=== PATIENT | female | born 1970 | race Caucasian/White ===

== ENCOUNTER → 2018-07-28 | Outpatient (CLI) | payer BC ==
[2018-07-28 16:37] LABS: Basophils # (A) 0.1 k/uL (0-0.2); Basophils % (A) 1 %; Eosinophils # (A) 0.1 k/uL (0-0.7); Eosinophils % (A) 2 %; HCT 37.5 % (34.0-46.0); HGB 12.3 gm/dL (11.4-16.0); Lymphocytes # (A) 1.4 k/uL (1.0-4.8); Lymphocytes % (A) 23 %; MCH 29.9 pg (25.0-35.0); MCHC 32.8 g/dL (31.0-37.0); MCV 91.2 fL (80.0-100.0); Mean Platelet Volume 8.4; Monocytes # (A) 0.3 k/uL (0-1.0); Monocytes % (A) 5 %; Neutrophils # (A) 3.9 k/uL (1.3-7.7); Neutrophils % (A) 66 %; Platelet Count 194 k/uL (150-450); RBC 4.11 m/uL (3.80-5.40); RDW 12.5 % (11.5-15.5); WBC 5.9 k/uL (3.8-10.6)
== END | disposition home or self-care (01) ==
LOC: LABPAT 15:42
PROVIDERS: ATTEND Obstetrics & Gynecology
DX: Z01.812 Encounter for preprocedural laboratory examination (principal)
CPT/HCPCS: 36415; 85025

== ENCOUNTER 2018-08-05 06:09 | Day surgery (SDC) | payer BC ==
--- NOTE | 2018-08-04 18:17 | P.HPOB ---
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 She initially had an abnormal Pap smear in July 2016 that showed low-grade with positive high risk HPV. She had a colposcopy 10/01/2017 that showed CHRISTA-1. She was also treated with cryocautery in September 2017. A repeat Pap smear on 05/27/2018 again revealed low-grade screen is intraepithelial lesion with positive high risk HPV. In light of the recurrence of the low-grade, she has requested to proceed with loop electrocautery excision procedure along with colposcopy. Obstetrical history: . History of 1 vaginal delivery. Gynecologic history: No other history of sexual transmitted diseases. She has been with her current partner for 2 years. She is currently on Xulane patch for control. Social history: She is . She is currently working in [employer]. Review of Systems Constitutional: Reports night sweats, Denies chills, Denies fever Eyes: denies blurred vision, denies pain Ears, nose, mouth and throat: Denies headache, Denies sore throat Cardiovascular: Denies chest pain, Denies shortness of breath Respiratory: Denies cough Gastrointestinal: Reports constipation, Denies abdominal pain, Denies diarrhea, Denies nausea, Denies vomiting Genitourinary: Reports dysmenorrhea, Reports dysuria, Reports urinary frequency , Denies hematuria Menstruation: Reports menses variable Musculoskeletal: Denies myalgias Integumentary: Denies pruritus, Denies rash Neurological: Denies numbness, Denies weakness Psychiatric: Reports anxiety Past Medical History Past Medical History: Osteoarthritis (OA) History of Any Multi-Drug Resistant Organisms: None Reported Past Surgical History: Orthopedic Surgery Additional Past Surgical History / Comment(s): Right foot surgery Past Anesthesia/Blood Transfusion Reactions: Family History of Problems w/ Anesthesia Additional Past Anesthesia/Blood Transfusion Reaction / Comment(s): Mother PONV Past Psychological History: Anxiety Smoking Status: Never smoker Past Alcohol Use History: Occasional Past Drug Use History: None Reported - Past Family History Mother Family Medical History: No Reported History Medications and Allergies Home Medications Medication Instructions Recorded Confirmed Type Control Patch 1 applic TOPICAL WEEKLY 08/03/18 08/03/18 History Multivitamins, Thera [Multivitamin 1 tab PO DAILY 08/03/18 08/03/18 History (formulary)] Allergies Allergy/AdvReac Type Severity Reaction Status Date / Time banana Allergy Swelling Verified 08/03/18 09:28 Exam Osteopathic Statement: *. No significant issues noted on an osteopathic structural exam other than those noted in the History and Physical/Consult. HEENT: Within normal limits Heart: Regular rate and rhythm Lungs: Clear to auscultation bilaterally Abdomen: Soft, nontender Pelvic exam: Uterus is retroverted, nontender, with no adnexal masses or tenderness noted. Extremities: Negative Homans Assessment and Plan (1) Low grade squamous intraepithelial lesion Status: Acute Code(s): DLC7722 - SNOMED Code(s): 541168837 Plan: Proceed with loop electrocautery excision procedure with colposcopy. I have discussed the risks, benefits, and alternative therapies for the above- mentioned procedure and for both sedation/anesthesia as well as necessary blood products administration, if indicated, as they pertain to this patient. The patient has indicated her understanding and acceptance of the risks and procedures discussed.
[~2018-08-05 06:09] MED LIST: DEXAMETHASONE SOD PHOSPHATE 10 MG/ML 1 ML VIAL IV ONE; LACTATED RINGERS 1,000 ML IV SCH; MIDAZOLAM 2 MG/2 ML VIAL IV PRN; ONDANSETRON 4 MG/2 ML VIAL IVP ONE; Pre Op ABX Message 1 EACH MISC MISCELLANE ONE; SCOPOLAMINE 1.5MG/72HR PATCH TRANSDERM ONE; fentaNYL (PF) 50 MCG/ML 2 ML AMP IV PRN
[2018-08-05 07:05] VITALS: RESP 16
[2018-08-05] MEDS ORDERED: LIDOCAINE 1% 20 ML VIAL (10MG/ML) FOR IV START INTRADERMA ONE (07:10)
[2018-08-05] MEDS ORDERED: fentaNYL (PF) 50 MCG/ML 2 ML AMP ONE (07:36)
[2018-08-05] MEDS ORDERED: MIDAZOLAM 2 MG/2 ML VIAL ONE (07:36)
[2018-08-05] MEDS ORDERED: PROPOFOL 10 MG/ML 20 ML VIAL IV ONE (07:36)
[2018-08-05] MEDS ORDERED: LIDOCAINE 1% INJ 10MG/ML (20 ML MDV) ONE (07:36)
[2018-08-05] MEDS ORDERED: KETOROLAC 30 MG/ML 1 ML VIAL ONE (07:36)
[2018-08-05] MEDS ORDERED: ACETIC ACID 15 DROPS/ML DROPS MISCELLANE ONE (07:55)
[2018-08-05] MEDS ORDERED: FERRIC SUBSULFATE (MONSELS) JAR TOPICAL ONE (07:55)
[2018-08-05] MEDS ORDERED: IODINE/POTASS IOD (LUGOLS) BTL TOPICAL ONE (07:55)
[2018-08-05] MEDS ORDERED: LIDOCAINE 1%-EPI 1:100,000 20 ML VIAL SQ ONE ×2 (07:55)
[2018-08-05] MEDS ORDERED: ROPIVACAINE 5 MG/ML 30 ML VIAL MISCELLANE ONE ×2 (07:56)
--- NOTE | 2018-08-05 08:04 | P.OP ---
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 She initially had an abnormal Pap smear in July 2016 that showed low-grade with positive high risk HPV. She had a colposcopy 10/01/2017 that showed CHRISTA-1. She was also treated with cryocautery in September 2017. A repeat Pap smear on 05/27/2018 again revealed low-grade screen is intraepithelial lesion with positive high risk HPV. In light of the recurrence of the low-grade, she has requested to proceed with loop electrocautery excision procedure along with colposcopy. Operative Findings: Cervix is visualized with a colposcope with a blue light. There is noted to be some coarse mosaicism at the 4 to 5 o'clock position. No specific abnormalities are seen with acetic acid or Lugol solution. Transition zone is seen entirely. Description of Procedure: The patient is taken to the operating room where she is placed in the dorsal lithotomy position. She is prepped and draped in the normal sterile fashion. Her bladder is drained with a catheter. A coated bivalve speculum was placed in the patient's vagina. Colposcopy is performed using a blue light. The above -noted findings are made. Next the cervix was circumferentially injected with a 50-50 mixture of 1% lidocaine with epinephrine and half percent ropivacaine. Approximately 7 mL were injected using a spinal needle circumferentially around the cervix. Next a large loop was used with 35 W cutting power to swipe from left to right. The entire transition zone is incorporated. This specimen is labeled with a stitch at the 12 o'clock position. Next a ball-tipped cautery is placed in cautery is performed on the bed left behind. Excellent hemostasis is noted. Monsel solution is applied. Excellent hemostasis is noted. All instruments are removed from the vagina. All sponge counts are correct. The patient is taken to recovery room in stable condition.
[2018-08-05 08:26] VITALS: TEMP 97.3
[2018-08-05 09:58] VITALS: BP 103/71; PULSE 64
== END 2018-08-05 10:19 | disposition home or self-care (01) ==
LOC: OR 06:09
PROVIDERS: ATTEND Obstetrics & Gynecology
DX: R87.613 High grade squamous intraepithelial lesion on cytologic smear of cervix (HGSIL) (principal); R87.810 Cervical high risk human papillomavirus (HPV) DNA test positive; M19.90 Unspecified osteoarthritis, unspecified site; F41.9 Anxiety disorder, unspecified; Z79.3 Long term (current) use of hormonal contraceptives; Z91.018 Allergy to other foods
CPT/HCPCS: 81025; 88307; 57461; J2250; J1100; J2405; J2001; J3010; J1885; J2795; J2704